=== PATIENT | male | born 1985 | race Caucasian/White ===

== ENCOUNTER 2021-11-25 10:45 | Emergency (ER) | payer OTHER, SELFPAY ==
[2021-11-25 12:14] VITALS: BP 116/75; PULSE 93; RESP 16; TEMP 36.7; O2SAT 98
--- NOTE | 2021-11-25 12:19 | ED.GENADUL_ITS ---
Discharge Plan Disposition Patient Disposition: HOME Condition: Stable Discharge Details Clinical Impression: Rectal pain, Hemorrhoids Primary Care Provider: Unknown,Unknown ED Provider: Iveth Fields Home Meds and New Rx's Prescriptions: New hydrocortisone 1 % cream with perineal applicator 1 applic MN BID 7 Days Qty: 28.4 0RF Rx Instructions: Apply to affected area twice daily x 7 days hydrocortisone acetate 25 mg suppository 25 mg MN DAILY PRN (Reason: hemorrhoids) 7 Days Qty: 12 0RF Discharge Instructions Instructions: Hemorrhoids (ED), Rectal Pain (ED) Additional Instructions: Apply Hydrocortisone cream twice daily x 7 days. Use the hydrocortisone rectal suppository as directed. Take the pain medication with food as directed up to 3 times daily. Do not operate heavy machinery or drive on this medication. Follow up with primary care provider in 3-5 days. Return to ED sooner if any worsening or concerns. Increase oral fluids. Please take Tylenol or Ibuprofen with food every 4-6 hours as needed for pain and swelling. Discharge Data Discharge Date/Time-TO BE ENTERED AT DEPARTURE: 11/25/21 12:53 Medical Decision Making 36-year-old male presents to the ER chief complaint of rectal pain since Friday. Upon examination he does have small swollen area just superior to his rectum. No obvious external hemorrhoids. No bleeding noted. This is tender to the touch. Nonfluctuant nonerythemic. Discussed home care. Patient was given hydrocortisone cream and hydrocortisone suppository. Instructed on sitz bath's. Discussed tricked return instructions and follow-up care. Verbalized understanding. This text was generated using [employer] system, please disregard any oddities of phrase or misspellings. HPI General Mode of arrival: ambulatory . Date/Time Provider Initiated Documentation: 11/25/21 10:46 . Limitations to Documentation: no limitations . Information obtained by: patient, RN notes reviewed and old records reviewed . HPI Narrative: 36-year-old male presents the ER with chief complaint of rectal pain which began on Friday. He reports worsening pain. He has applied Preparation H with little to no relief. He does report constipation. He denies any blood in his stool denies any fever chills or any other associated symptoms. He has been taking Tylenol and ibuprofen. Related Data Home Medications Medication Instructions Recorded Confirmed hydrocortisone 1 % topical cream 1 applic MN BID 7 days #28.4 grams 11/25/21 with perineal applicator hydrocortisone acetate 25 mg 25 mg MN DAILY PRN hemorrhoids 7 11/25/21 rectal suppository days #12 ea Previous Rx's Medication Instructions Recorded hydrocortisone 1 % topical cream 1 applic MN BID 7 days #28.4 grams 11/25/21 with perineal applicator hydrocortisone acetate 25 mg 25 mg MN DAILY PRN hemorrhoids 7 11/25/21 rectal suppository days #12 ea Allergies Allergy/AdvReac Type Severity Reaction Status Date / Time No Known Allergies Allergy Unverified 11/25/21 12:17 General Stated Complaint: Vascular NATHAN: 4 Review of Systems All systems reviewed & are unremarkable except as noted in HPI and below Gastrointestinal Gastrointestinal: Denies hematochezia and Reports constipation PFSH All Active Problems (Updated 11/25/21 @ 12:36 by Iveth Fields NP) Rectal pain (Acute) Hemorrhoids (Acute) Social History Smoking/Tobacco Use Status: Never Smoking risk assessment performed?: Yes Alcohol Intake: current Alcohol Intake frequency: holidays/special occasions only Alcohol type: beer Drug use: Never Substance use type: does not use Do you feel safe at home: Yes Exam GI Rectal Exam: normal sphincter tone, prostate normal and mass herman-rectal fixed, soft, tender, laterally on the left and posteriorly; not fluctuant and not draining Back/Spine/Pelvis Back/spine/pelvis image: 1. Tender area nonerythemic nonfluctuant no obvious hemorrhoids noted. Course Vital Signs Vital signs: Vital Signs Temperature 36.7 C 11/25/21 12:14 Pulse 93 H 11/25/21 12:14 Respiratory Rate 16 11/25/21 12:14 Blood Pressure 116/75 11/25/21 12:14 Pulse Oximetry 98 11/25/21 12:14 Temperature 36.7 C 11/25/21 12:14 Temperature Source Temporal Artery Scan 11/25/21 12:14 Pulse 93 H 11/25/21 12:14 Respiratory Rate 16 11/25/21 12:14 Blood Pressure 116/75 11/25/21 12:14 Blood Pressure Position Left Lateral 11/25/21 12:14 Pulse Oximetry 98 11/25/21 12:14 Oxygen Delivery Method Room Air 11/25/21 12:14 Oxygen Flow Rate 0 11/25/21 12:14 Pain Level 10 11/25/21 12:14
[2021-11-25] MEDS: oxyCODONE 5 MG TAB PO (12:43)
--- NOTE | 2021-11-27 18:14 | NUR.NOTE ---
Nursing Note: Patient called asking about his prescriptions. He was told that they were printed and he should take them to the pharmacy. He asked about oxycodone and I told him that we could not re-prescribe them, he would need re-evaluation. He asked about if it did not get better,it was mentioned about surgery. I told him that he would need to be re-evaluated for continuing pain and then referred to surgery.
== END 2021-11-25 12:53 | disposition home or self-care (01) ==
PROVIDERS: Emergency Provider Registered Nurse Emergency
DX: K62.89 Other specified diseases of anus and rectum (principal); K64.9 Unspecified hemorrhoids
CPT/HCPCS: 99283; J3490